=== PATIENT | female | born 1965 | race Asian ===

== ENCOUNTER 2020-04-26 07:58 | Outpatient (CLI) | payer OTHER, SELFPAY ==
--- NOTE | 2020-05-04 09:42 | WPDHOLTEREM ---
Holter/Event Monitor Holter/Event Monitor Date of procedure: 04/26/20 Procedure Type: event monitor Indications: Palpitations Conclusion: 1. 6 days event monitor between 04/26/20-05/04/20. There are 9 available transmissions for analysis. 2. Underlying rhythm is sinus rhythm. HR range 51-140 bpm; average HR 75 bpm. 3. There are occasional premature supraventricular complexes with total burden of <1%. No supraventricular tachycardia. 4. There are occasional premature ventricular complexes with total burden of 1%. No ventricular tachycardia. 5. No significant pauses greater than 2 seconds. 6. Patient reports 4 episodes of symptoms of heart racing and symptoms other than listed which demonstrate sinus rhythm, HR range 73-106 bpm.
== END 2020-04-26 07:59 | disposition home or self-care (01) ==
PROVIDERS: PCP Internal Medicine; Visit Provider Internal Medicine
DX: R00.2 Palpitations (principal)
CPT/HCPCS: 93270

== ENCOUNTER 2020-05-04 07:21 | Outpatient (CLI) | payer OTHER, SELFPAY ==
--- NOTE | ~2020-05-04 | XR_ITS ---
EXAMINATION: XR foot LT min 3V DATE: 05/04/2020 07:40 INDICATION: Left foot pain TECHNIQUE: Dorsoplantar, lateral, and oblique views of the left foot were obtained. COMPARISON: None. FINDINGS: There is no fracture. Bone alignment is normal. There is mild osteoarthritis at the first m etatarsophalangeal joint. There is plantar soft tissue swelling of the foot overlying the metatarsals . IMPRESSION: 1. Plantar soft tissue swelling of the foot without underlying osseous abnormality. Reviewed, dictated and finalized at location A. ENISHMENT ASSOCIATE IMPRESSION: 1. Plantar soft tissue swelling of the foot without underlying osseous abnormal ity.
== END 2020-05-04 07:22 | disposition home or self-care (01) ==
LOC: CHSIMG 07:22
PROVIDERS: PCP Internal Medicine; Visit Provider Podiatrist
DX: M79.672 Pain in left foot (principal); M77.42 Metatarsalgia, left foot
CPT/HCPCS: 73630

== ENCOUNTER 2020-10-23 01:17 | Emergency (ER) | payer OTHER, SELFPAY ==
[2020-10-23 01:28] VITALS: BP 114/63; PULSE 68; RESP 16; TEMP 36.6; O2SAT 99
--- NOTE | 2020-10-23 01:35 | PC.NURSE ---
eating & drinking fine. denies n/v or diarrhea
--- NOTE | 2020-10-23 01:37 | ED.GENADULT ---
HPI - General Adult General Chief complaint: Unspecified Stated complaint: adominal pain Source: patient and family Mode of arrival: ambulatory Limitations: no limitations History of Present Illness HPI narrative: Laurie is a 55F with a PMH of divticulosis/diverticulitis, GERD, osteoporosis, osteopenia and anxiety that presented to the ED with 1 day of LLQ pain. She had 1 hard stool, after which she felt better. She also had some nausea and 1 episode of vomiting after which her nausea improved. She did have some chills as well. No CP, SOB, back pain or dysuria. Related Data Allergies Allergy/AdvReac Type Severity Reaction Status Date / Time clavulanic acid Allergy Mild HIVES Verified 10/23/20 01:44 Penicillins Allergy Mild HIVES Verified 10/23/20 01:44 codeine Allergy Unknown SEVERE Verified 10/23/20 01:44 HEADACHE indomethacin Allergy Unknown ? Verified 10/23/20 01:44 Review of Systems Constitutional: Constitutional: Reports no additional constitutional complaints Eyes: Eyes: Reports no additional eye complaints ENT: Reports system reviewed and no additional complaints, except as documented Cardiovascular: Cardiovascular: Reports no additional cardiovascular complaints Respiratory: Respiratory: Reports no additional respiratory complaints Gastrointestinal: Gastrointestinal: Reports as per HPI Genitourinary: Genitourinary: Reports no additional female genitourinary complaints Musculoskeletal: Musculoskeletal: Reports no additional musculoskeletal complaints Integumentary/Breasts: Skin/Breast: Reports system reviewed and no additional complaints, except as docu Neurologic: Reports system reviewed and no additional complaints, except as documented Psychiatric: Psychiatric: Reports no additional psychiatric complaints Endocrine: Endocrine: Reports no additional endocrine complaints Hematologic/Lymphatic: Hematologic/Lymphatic: Reports no additional hematologic/lymphatic complaints Allergic/Immunologic: Allergic/Immunologic: Reports no additional allergic/immunologic complaints [facility] Family History Family History Other Cerebrovascular accident Hypertension Social History Social History Smoking status: Never smoker Alcohol intake: current Exam Const: General: cooperative and healthy appearing; No comfortable HENMT: Head: normal to inspection Ears: hearing grossly normal bilaterally General nose exam: Normal external nose present Eyes: General: appearance normal, both eyes and all related structures EOM: EOMs intact bilaterally Neck: Neck: normal visual inspection Chest: Chest palpation & inspection: normal inspection of the chest Resp: Effort & Inspection: normal respiratory effort and able to speak in complete sentences Auscultation: clear to auscultation bilaterally Cardio: Rate: regular rate Rhythm: regular rhythm GI: Other: LLQ tenderness, no guarding or rebound tenderness. bowel sounds normal. No RUQ or RLQ tenderness Back/Spine/Pelvis: Back: no CVA tenderness Skin: General skin exam: normal color and no rashes or lesions noted Neuro: General: oriented to person, oriented to place and oriented to time Cranial nerves: Yes CN's II-XII intact bilaterally Motor exam (neuro): 5/5 motor strength present throughout Extrem: General: normal to inspection Psych: Appearance: grossly normal and well kempt Mental Status: mental status grossly normal Speech and movement: Normal speech and movement present Affect: normal affect Attitude: cooperative Thought process: Normal thought process present Thought content: Yes Normal thought content present Insight: Good insight present (Psych) Judgement: Good judgement present (Psych) Course Course Emergency Course: Laurie was evaluated. Declined pain and nausea meds. Was given abx. We discussed getting a CT and the pros and cons
[2020-10-23] MEDS: CIPROFLOXACIN 500 MG TAB PO (01:48)
[2020-10-23] MEDS: metroNIDAZOLE 250 MG TABLET 500 MG PO (01:48)
[2020-10-23 01:56] LABS: Bilirubin Urine Negative (Negative); Blood Urine Negative (Negative); Color Urine Light Yellow (Yellow); Glucose Urine UA Negative (Negative); Ketones Urine Negative (Negative); Leukocyte Esterase Ur Negative LEU/UL (Negative); Nitrate Urine Negative (Negative); Protein Urine Negative (Negative); Urobilinogen Urine 0.2 mg/dL (0.2-1.0); pH Urine 8.5 (5.0-8.0)
[2020-10-23 02:10] LABS: Add Urine Microscopic? YES; Appearance Urine Cloudy (Clear)
[2020-10-23 02:13] LABS: Basophils Absolute Auto 0.04 K/mm3 (0.00-0.10); Basophils Percent Auto 0.4 % (0.0-1.0); Eosinophils Absolute Auto 0.16 K/mm3 (0.02-0.50); Eosinophils Percent Auto 1.6 % (1.0-6.0); Hematocrit 36.8 % (35.0-49.0); Immature Granulocyte Absolute 0.04 K/mm3 (0.00-0.00); Immature Granulocyte Percent A 0.4 % (0.0-0.0); Lymphocytes Absolute Auto 0.79 K/mm3 (1.10-4.50); Lymphocytes Percent Auto 7.8 % (18.0-42.0); Mean Corpuscular HGB Conc 32.6 g/dL (32.0-36.0); Mean Corpuscular Volume 95.1 fL (78.0-102.0); Mean Platelet Volume 9.2 fl (9.2-11.8); Monocytes Absolute Auto 0.62 K/mm3 (0.10-0.90); Monocytes Percent Auto 6.1 % (2.0-11.0); Neutrophils Absolute Auto 8.5 K/mm3 (1.7-7.2); Neutrophils Percent Auto 83.7 % (50.0-70.0); Platelet Count Result 186 K/mm3 (150-420); Red Blood Count 3.87 M/mm3 (4.20-5.40); Red Cell Distribution Width 12.1 % (11.6-14.4); White Blood Count 10.2 K/mm3 (4.8-10.8)
[2020-10-23 02:26] LABS: Alanine Aminotransferase 21 U/L (14-59); Albumin Level 3.9 g/dL (3.4-5.0); Alkaline Phosphatase 54 U/L (46-116); Anion Gap 9 mmol/L (8-16); Aspartate Amino Transferase 18 U/L (15-37); Bilirubin,Total 0.6 mg/dL (0.00-1.00); Blood Urea Nitrogen 17 mg/dL (7-18); Calcium 8.6 mg/dL (8.5-10.1); Carbon Dioxide 28 mmol/L (21-32); Chloride 104 mmol/L (98-108); Estimated CRCL calculation 51 ml/min; Estimated Glomerular Filt Rate > 60; Glucose 103 mg/dL (70-99); Lipase 81 U/L (73-393); Osmolality Calculated 293 mOsm/kg (285-295); Potassium 3.9 mmol/L (3.5-5.1); Sodium 141 mmol/L (136-145); Total Protein 7.2 g/dL (6.4-8.2)
[2020-10-23 02:29] LABS: Lactic Acid Reflex 0.7 mmol/L (0.4-2.0)
[2020-10-23 02:39] VITALS: BP 117/60; PULSE 67; RESP 16; TEMP 36.1; O2SAT 97
== END 2020-10-23 02:41 | disposition home or self-care (01) ==
PROVIDERS: Emergency Provider Family Medicine; PCP Internal Medicine
DX: K57.92 Diverticulitis of intestine, part unspecified, without perforation or abscess without bleeding (principal)
CPT/HCPCS: 36415; 80053; 81001; 83605; 83690; 85025; 99283; A9270

== ENCOUNTER 2020-12-08 13:37 | Outpatient (CLI) | payer OTHER, SELFPAY ==
--- NOTE | ~2020-12-08 | XR_ITS ---
XR knee RT min 4V DATE: 12/08/2020 14:10 INDICATION: Right knee pain TECHNIQUE: 4 views COMPARISON: None FINDINGS: No fracture or dislocation or joint effusion. No periosteal reaction or bone destruction. J oint spaces are preserved. No radiopaque intra-articular loose body or chondrocalcinosis. IMPRESSION: Negative Reviewed, dictated and finalized at location B. IMPRESSION: Negative
== END 2020-12-08 13:38 | disposition home or self-care (01) ==
LOC: ANHIMG 13:42
PROVIDERS: PCP Internal Medicine; Visit Provider Internal Medicine
DX: M25.561 Pain in right knee (principal)
CPT/HCPCS: 73564

== ENCOUNTER 2020-12-16 12:42 | Outpatient (CLI) | payer OTHER, SELFPAY ==
--- NOTE | ~2020-12-16 | MR_ITS ---
EXAMINATION: MR knee RT wo con DATE: 12/16/2020 13:30 INDICATION: Right knee pain TECHNIQUE: Magnetic resonance imaging (MRI) of the right knee was performed without intravenous contr ast. Sequences included coronal PD-weighted FSE, coronal PD-weighted FS FSE, sagittal T2-weighted FS E, sagittal PD-weighted FS FSE and axial PD weighted fat saturated FSE. COMPARISON: None. FINDINGS: Medial compartment: Nonspecific 4 x 3 x 3 mm filling defect seen surrounded by fluid at the lateral side of the medial co mpartment near the anterior free edge of the lateral aspect of the posterior root of the medial menis cus. On the sagittal fat saturated series 6, image 17 there is increased signal at the inner third of the posterior horn of the meniscus suggesting this could represent a small displaced meniscal flap. Differential would include small loose body or extension a small amount of synovium from the intercon dylar notch. Medial meniscus appears otherwise normal. Articular cartilage appears normal. Lateral compartment: Lateral meniscus is normal. Articular cartilage is normal. Patellofemoral compartment: Small deep chondral fissure involving greater than 50% the cartilage thickness but without degenerati ve subchondral changes at the central aspect of the medial patellar facet. Patellofemoral cartilage a ppears otherwise normal. Ligaments and tendons: Anterior and posterior cruciate ligaments are normal. The medial collateral ligament and fibular alpa ateral ligament complex are normal. The extensor mechanism is normal. The visualized medial and later al hamstring tendons as well as the iliotibial band are normal. Fluid: Physiologic amount of fluid in the joint space. No loose osteochondral bodies identified. Osseous/other: Normal marrow signal. No fracture or pathologic marrow replacing process. IMPRESSION: 1. Small filling defect along the anterior free edge of the lateral side of the posterior horn of the medial meniscus with subtle increased meniscal signal along the free edge which is seen on only one image. Differential would include meniscal tear with small displaced flap versus small loose body or small amount of synovitis. Reviewed, dictated and finalized at location A. IMPRESSION: 1. Small filling defect along the anterior free edge of the lateral side of the posterior horn of the medial meniscus with subtle increased meniscal signal al nora the free edge which is seen on only one image. Differential would include m eniscal tear with small displaced flap versus small loose body or small amount of synovitis.
== END 2020-12-16 12:43 | disposition home or self-care (01) ==
LOC: ANHIMG 12:47
PROVIDERS: PCP Internal Medicine; Visit Provider Internal Medicine
DX: M25.561 Pain in right knee (principal); R93.6 Abnormal findings on diagnostic imaging of limbs
CPT/HCPCS: 73721

== ENCOUNTER 2021-03-17 09:47 | Outpatient (CLI) | payer OTHER, SELFPAY ==
--- NOTE | ~2021-03-17 | US_ITS ---
EXAMINATION: US thyroid EXAM DATE: 03/17/2021 10:41 INDICATION: Hypothyroidism. TECHNIQUE: Multiple grayscale and Doppler images of the thyroid were obtained (by a technologist who performed the scan) and subsequently reviewed. Individual nodules and recommendations may be reporte d in accordance with TI-RADS system as designated by the 2017 ACR White Paper TI-RADS committee. Comp arison is made to prior examination from 03/01/2016. FINDINGS: The right thyroid lobe measures 6.0 x 2.2 x 1.7 cm, the left measuring 4.5 x 1.8 x 1.6 cm, mild to mo derate thyromegaly. Again there is diffusely heterogeneous, diffusely hypervascular thyroid parenchym a. 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 No discrete focal nodule identified within the heterogeneous parenchyma. IMPRESSION: Enlarged heterogeneous hypervascular thyroid. Reviewed, dictated and finalized at location B. MAKER
== END 2021-03-17 09:48 | disposition home or self-care (01) ==
LOC: ANHIMG 09:51
PROVIDERS: PCP Internal Medicine; Visit Provider Internal Medicine
DX: E03.9 Hypothyroidism, unspecified (principal)
CPT/HCPCS: 76536

== ENCOUNTER 2021-05-18 10:30 | Outpatient (RCR) | payer OTHER, SELFPAY ==
--- NOTE | 2021-03-16 14:12 | OTOPEVAL ---
OCCUPATIONAL THERAPY INITIAL EVALUATION REPORT 03/09/21 Patient referred to outpatient OT with dx of left hand weakness. She does have a history of chronic cubital tunnel syndrome which she has been managing independently with positioning techniques. She then was bit by a dog ~2 months ago that appeared to exacerbate her ulnar nerve symptoms. She presents today with weakness and muscle atrophy in the left hand restricting her ability to complete fine motor tasks, such as tying shoes and doing buttons. Skilled OT indicated for instruction in HEP and HEP progression, gross hand/finger strengthening, and nerve glide/mobilization to facilitate optimal functional use of the left hand. Today the patient demonstrates excellent understanding of HEP. Plan to have her complete this independently x2 weeks then return for follow up and HEP progression as needed. Thank you for referring Laurie Nelson to [facility].? The patient is scheduled to be seen for therapy?0-1x/week for 4 weeks. Please review, sign, date and return this plan of care ANGEL. I agree with and certify that the following plan of care is medically necessary. Referring Physician Date Referring Provider: Chong Gibson MD *OT Outpatient Evaluation Start: 03/16/21 13:00 Therapy Assessment Status Assessment Status Assessment Status Evaluation Outpatient Past Medical History Gastrointestinal History Hx Colitis Yes Hx Diverticulitis Yes Hx Diverticulosis Yes Hx Gastroesophageal Reflux Disease Yes Musculoskeletal History Hx Osteoporosis Yes Hx Other Musculoskeletal Disorders Yes: osteopenia Reproductive History Hx Post Menopausal Yes Hx Tubal Ligation Yes Psychosocial History Hx Anxiety Yes Evaluation Information Problem Diagnosis Left hand weakness Subjective Information Patient was bit by a dog on Query Text:As Reported By Patient/ 01/16/21 on her left hand, Family ulnar side. She also has some history of cubital tunnel syndrome. 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 She has a nerve conduction study scheduled for early March. Prior Level of Function Activity Level (Last 3 Months) Occupation Retried Hand Dominance Right Pain Assessment Timing of Pain Assessment Timing of Pain Assessment Assessment Pain Scale Pain Scale Used Numeric (1 - 10) Self Report Pain Assessment Left Hand(s) Reported Pain Level 0 Lowest Pain Intensity 0 Greatest Pain Intensity 0 Pain Score Pain Score 0: Self Report Upper Extremity Range of Motion General Upper Extremity Range of Motion Reason Not Measured WNL/Left,WNL/Right Upper Extremity Muscle Strength Testing Wrist Strength Bilateral Wrist Flexion Strength 5 Normal
--- NOTE | 2021-03-30 12:09 | PCOTNOTE ---
Patient called & cancelled scheduled appointment this date due to the weather.
--- NOTE | 2021-04-07 10:08 | OTOPEVAL ---
OCCUPATIONAL THERAPY RE-EVALUATION REPORT 04/07/21 Laurie presents for OT re-evaluation after 3 weeks of completing HEP for left hand weakness (patient preferred to work independently with HEP due to high co-pay). 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 She continues to has residual weakness and muscle atrophy in the hand. Fine motor coordination, as measured by the 9-hole peg test, improved by 2 seconds and is now near normal limits. Continued skilled hand therapy recommended to continue to progress functional strengthening and to challenge her fine motor coordination to facilitate optimal functional use of the left hand. Thank you for referring Laurie Nelson to [facility].? The patient is scheduled to be seen for therapy? 1x/week every other week x6 weeks (3 more visits). Please review, sign, date and return this plan of care ANGEL. I agree with and certify that the following plan of care is medically necessary. Referring Physician Date Referring Provider: Chong Gibson MD *OT Outpatient Re-Evaluation Diagnosis Left hand weakness Subjective Information Patient was bit by a dog on 11 Query Text:As Reported By Patient on her left hand, ulnar Family side. She also has history of cubital tunnel syndrome (reporting as long ago as when she was 18 years old). 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 Since starting therapy on 03/16/21, she states that her hand has improved a little, but it's hard to tell . Pain Assessment Timing of Pain Assessment Timing of Pain Assessment Re-assessment Self Report Self Report Pain Level 0 Pain Score Pain Score 0: Self Report Upper Extremity Range of Motion General Upper Extremity Range of Motion Reason Not Measured WNL/Left,WNL/Right Upper Extremity Muscle Strength Testing Wrist Strength Bilateral Wrist Flexion Strength 5 Normal Wrist Extension Strength 5 Normal Wrist Radial Deviation 5 Normal Wrist Ulnar Deviation 5 Normal Finger Strength Left Finger Strength Comments Finger abduction 3/5 Finger adduction 3+/5 Muscle atrophy in the intrinsics in the left compared to the right. 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
--- NOTE | 2021-05-18 11:18 | OTOPEVAL ---
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 She has attended 2 therapy check in sessions where we have utilizing the Sonicbids (BTE) machine to simulate functional tasks and work on functional natural resource specialist/pinch strengthening. Measurements this date have shown improvement in functional strength and fine motor coordination. Intrinsics and thumb adductor demonstrate improvements in strength. She is using her left hand for more functional tasks and is more mindful of her natural resource specialist/pinch to utilize her affected muscles vs. compensating. Overall, her potential to continue to make improvements with functional strength looks good. Discharging today with patient independent with HEP. Thank you for referring Laurie Nelson to [facility].?Please review, sign, date and return this plan of care ANGEL. I agree with and certify that the following plan of care is medically necessary. Referring Physician Date Referring Provider: Chong Gibson MD *OT Outpatient Re-Evaluation Diagnosis Left hand weakness Subjective Information Patient was bit by a dog on Query Text:As Reported By Patient/ 01/16/21 on her left hand, ulnar Family side. She also has history of cubital tunnel syndrome (reporting as long ago as when she was 18 years old). 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 Since starting therapy on 03/16, she states that her hand has improved, noting that she feels stronger. She reports some improvements with opening her water bottle and being able to straighten her hair. She reports she has been trying to make her left hand do more tasks. Pain Assessment Timing of Pain Assessment Timing of Pain Assessment Assessment Self Report Self Report Pain Level 0 Pain Score Pain Score 0: Self Report Upper Extremity Range of Motion General Upper Extremity Range of Motion Reason Not Measured WNL/Left,WNL/Right Upper Extremity Muscle Strength Testing Finger Strength Left Finger Strength Comments Finger abduction improved from 3/5 to 3+/5 Finger adduction in the index and middle remained at 3+/5 Finger adduction in the ring and small improved from 3+/5 to 4/5. Muscle atrophy in the intrinsics i
== END 2021-05-19 09:14 | disposition home or self-care (01) ==
LOC: ANHOT 10:30
PROVIDERS: PCP Internal Medicine
DX: R29.898 Other symptoms and signs involving the musculoskeletal system (principal)
CPT/HCPCS: 97110; 97166

== ENCOUNTER → 2021-12-08 08:16 | Outpatient (CLI) | payer OTHER, SELFPAY ==
--- NOTE | ~2021-12-08 | MMUS_ITS ---
EXAMINATION: MM diagnostic heladio LT w jannette, US breast LT complete HISTORY: Palpable left breast abnormality TECHNIQUE: Additional 3-D tomosynthesis images of the left breast were performed and synthetic 2-D im ages were generated. CAD analysis was submitted and interpreted. High resolution complete left breast ultrasound was performed. COMPARISON: Comparison to multiple prior studies sequentially, with oldest reviewed study dated 07/2015. BREAST PARENCHYMAL COMPOSITION: BREAST PARENCHYMAL COMPOSITION: The breasts are extremely dense, which lowers the sensitivity of mamm ography. FINDINGS: MAMMOGRAPHIC FINDINGS: There are no suspicious masses, calcifications or architectural distortion in the left breast to sugg est malignancy. ULTRASOUND: Complete left breast US of all 4 quadrants of the breasts and retroareolar region was reviewed. Anusha l heterogeneous echotexture without focal solid or cystic mass. IMPRESSION: 1. No evidence for malignancy in the left breast. 2. Routine yearly screening mammogram and regular clinical breast examination are recommended. BI-RADS Category 1: Negative Reviewed, dictated and finalized at location A. IMPRESSION: 1. No evidence for malignancy in the left breast. 2. Routine yearly screening mammogram and regular clinical breast examination a re recommended. BI-RADS Category 1: Negative
== END ==
PROVIDERS: PCP Internal Medicine; Visit Provider Obstetrics & Gynecology
DX: N64.4 Mastodynia (principal)
CPT/HCPCS: 76641; 77061; 77065; G0279

== ENCOUNTER 2022-02-21 16:01 | Emergency (ER) | payer OTHER, SELFPAY ==
[2022-02-21 16:10] VITALS: BP 141/81; PULSE 69; RESP 14; TEMP 36.8; O2SAT 100
--- NOTE | 2022-02-21 16:20 | ED.EPISTAXIS ---
HPI - Epistaxis General Chief complaint: Epistaxis Stated complaint: epitaxis Time Seen by Provider: 02/21/22 16:06 History of Present Illness HPI Narrative: Patient is a 56-year-old female here for evaluation of nosebleed over the past 45 minutes. Patient believes that blood smoke from her right nare but also believes is coming from the left. She states that she feels blood dripping down her posterior oropharynx. She is not on blood thinner medications. Denies obvious trigger including trauma. She has had sinus congestion over the past several days. Related Data Allergies Allergy/AdvReac Type Severity Reaction Status Date / Time clavulanic acid Allergy Mild HIVES Verified 02/21/22 16:14 Penicillins Allergy Mild HIVES Verified 02/21/22 16:14 codeine Allergy Unknown SEVERE Verified 02/21/22 16:14 HEADACHE indomethacin Allergy Unknown ? Verified 02/21/22 16:14 Review of Systems Review of Systems: Gen.: Denies fevers or chills Eyes: Denies eye pain or visual change ENT: reports nosebleed Respiratory: Denies shortness of breath or cough CV: Denies chest pain or palpitations GI: Denies abdominal pain nausea, emesis or diarrhea denies burning, urgency, frequency or hematuria Musculoskeletal: Denies back pain or muscle pain Neuro: Denies numbness, tingling, weakness or focal weakness Skin: Denies rash Except as documented, all other systems reviewed and negative [facility] Family History Family History Other Cerebrovascular accident Hypertension Social History Social History Smoking status: Never smoker Alcohol intake: current Exam Narrative: Gen: Alert, oriented, no acute disease Eyes: EOMI, no icterus Pulm: Respirations even and unlabored, symmetric thorax expansion, no audible stridor or visible cyanosis ENT: fresh blood in bilateral nasal mucosa, no active hemorrhage or bleed noted CV: Regular rate per telemetry GI: No distension, no voluntary/involuntary guarding Neuro: AOx4, moves all extremities without apparent difficulty or weakness, follows commands Skin: No jaundice, no visible bruising, rashes, lesions or wounds on exposed skin Psych: Normal mood/affect, insight/judgement good, adequate fund of knowledge, recent/remote memory intact Course Vital Signs Vital signs: Vital Signs Temperature 98.2 F 02/21/22 16:10 Pulse Rate 69 02/21/22 16:10 Respiratory Rate 14 02/21/22 16:10 Blood Pressure 141/81 H 02/21/22 16:10 Pulse Oximetry 100 02/21/22 16:10 Oxygen Delivery Room Air 02/21/22 16:10 Temperature 98.2 F 02/21/22 16:10 Pulse Rate 69 02/21/22 16:10 Respiratory Rate 14 02/21/22 16:10 Blood Pressure 141/81 H 02/21/22 16:10 Pulse Oximetry 100 02/21/22 16:10 Oxygen Delivery Room Air 02/21/22 16:10 MDM - Epistaxis MDM Narrative Medical decision making narrative: 56-year-old female here for evaluation of a nosebleed over the past 45 minutes. Upon arrival to the ED nosebleed appears controlled with no active bleeding, only scant amount of blood noted in the nares. She is not on blood thinners. She was given oxymetazoline spray and nasal clamping with improvement of her symptoms, was observed for an hour without recurrence of the bleed. She was discharged home to follow-up with her primary care doctor, discussed return precautions with understanding. Discharge Plan Discharge Clinical Impression: Epistaxis Patient Disposition: Home, Self-Care Condition: Stable Instructions: Antibiotic Form, Nosebleed (ED) Additional Instructions: Your nosebleed was controlled today with Afrin in the ED. Please avoid picking your nose, blowing your nose or any trauma to your mucosa. Return to the ED if the nosebleed returns. Prescriptions: No Action ciprofloxacin HCl [Cipro] 500 mg tablet 500 mg PO Q12H Qty: 20 0RF metronidazole 500 mg
[2022-02-21] MEDS: OXYMETAZOLINE HCL 0.05% NAS 15 ML BTL (*BKC) 1 SPRAY NASAL (16:45)
== END 2022-02-21 17:25 | disposition home or self-care (01) ==
PROVIDERS: Emergency Provider Physician Assistant; PCP Internal Medicine
DX: R04.0 Epistaxis (principal); I10 Essential (primary) hypertension; Z86.73 Personal history of transient ischemic attack (TIA), and cerebral infarction without residual deficits
CPT/HCPCS: 99283; A9270

== ENCOUNTER 2022-04-27 16:45 | Outpatient (CLI) | payer OTHER, SELFPAY ==
--- NOTE | ~2022-04-27 | XR_ITS ---
EXAMINATION: XR chest 2V DATE: 04/27/2022 17:12 INDICATION: Chronic left-sided chest pain TECHNIQUE: PA and lateral views of the chest are obtained. COMPARISON: 10/08/2017 FINDINGS: The lungs are hyperinflated but free of acute opacities. No pleural effusion or pneumothora x. The cardiomediastinal silhouette is normal. There is moderate thoracic spondylosis. IMPRESSION: 1. No acute cardiopulmonary abnormality. Reviewed, dictated and finalized at location F. CLASS MODEL
== END 2022-04-27 16:46 | disposition home or self-care (01) ==
LOC: CHSIMG 16:51
PROVIDERS: PCP Internal Medicine; Visit Provider Internal Medicine
DX: R07.9 Chest pain, unspecified (principal)
CPT/HCPCS: 71046

== ENCOUNTER 2024-09-17 13:05 | Outpatient (RCR) | payer OTHER, SELFPAY ==
--- NOTE | 2024-09-17 13:57 | OPREHPOC ---
Outpatient Therapy Plan of Care This is a Multidisciplinary Plan of Care that may contain components documented by all disciplines (PT, OT, and ST.) PT Problem 1 PT Problem #1 Knowledge Deficit PT Goal 1 Goal / Goal Update independent and compliant with HEP Target Visit 6 PT Problem 2 PT Problem #2 Pain PT Goal 1 Goal / Goal Update decrease pain at worst to 2/10 or less in the R shoulder Target Visit 12 PT Problem 3 PT Problem #3 Impaired Range of Motion PT Goal 1 Goal / Goal Update 160 degrees active R shoulder flex 80 degrees or better active R shoulder ER without pain 65 degrees or better active R shoulder IR without pain Target Visit 12 PT Problem 4 PT Problem #4 Impaired Strength PT Goal 1 Goal / Goal Update 5/5 R shoulder strength Target Visit 12 PT Problem 5 PT Problem #5 Impaired Functional Mobility PT Goal 1 Goal / Goal Update quick dash to display less than 5% functional deficits patient to return to reaching behind back to get dressed with the R UE without pain or limitations patient to care for all grandchildren without R shoulder pain patient to lift 20lbs from waist to shoulder level without pain in the R shoulder Target Visit 12
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
--- NOTE | 2024-10-14 17:42 | PTOPREEVAL ---
Assessment and note entered by Anna [place] DPT Evaluation Information Assessment Status Re-evaluation ICD-10 Condition Codes (PT) Pain in right shoulder M25.511 Onset 07/19/2024 Subjective Information Patient reports she has noticed some improvement in function and mobility and slight decrease in pain. She reports reaching behind her back continues to be the most painful and limited. She reports she sees the MD on Oct 28. She reports she is compliant with HEP. Reported Pain Level Pain Score 2: Self Report Assessment PT Clinical Summary Mrs. Nelson has been seen for 12 visits of skilled PT. At this time she demonstrates improve R shoulder strength and decreased pain with ROM but continues to be limited in active end range motion. She reports improvements in lifting her grandchildren but continues to reports significant difficulty and pain with activity requiring her to reach behind her back. She would benefit from continued skilled PT to address remaining impairments and return to PLOF. Plan of Care Interventions Electrical Stimulation,Hot Pack/Cold Pack,Manual Therapy,Neuro Re-education,Patient/Caregiver Education,Therapeutic Activities,Therapeutic Exercise PT Services Indicated Yes Treatment Frequency and continue 2x weekly for 8 additional visits Duration These treatments will address the objective and functional deficits as defined above. The patient will be advanced safely and appropriately in order for the patient to progress towards his/her prior level of function. Additional exercises will be introduced and as well as a comprehensive home exercise program upon discharge, if needed, ?to ensure carryover of functional gains achieved in the clinic. This treatment plan has been reviewed and agreement upon by the patient.
== END 2024-10-24 10:34 | disposition home or self-care (01) ==
LOC: CHSPT 13:05
PROVIDERS: PCP Nurse Practitioner Family; Visit Provider Nurse Practitioner Family
DX: M25.511 Pain in right shoulder (principal); M25.819 Other specified joint disorders, unspecified shoulder
CPT/HCPCS: 97014; 97110; 97112; 97140; 97161; G0283